=== PATIENT | female | born 1990 | race Hispanic/Latino ===

== ENCOUNTER 2024-06-13 18:24 | Emergency (ER) | payer OTHER, SELFPAY ==
--- NOTE | 2024-06-13 19:17 | EKG_ITS ---
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
[2024-06-13 19:18] VITALS: BP 153/87; PULSE 86; RESP 18; TEMP 37.6; O2SAT 97; BMI 25.9
[2024-06-13 20:16] LABS: Influenza A - CEPHEID Flu A NEGATIVE (NEGATIVE); Influenza B - CEPHEID Flu B NEGATIVE (NEGATIVE); Respiratory Syncytial Virus Negative (Negative)
[2024-06-13 20:18] LABS: COVID-19 CEPHEID 4-PLEX PCR Negative (Negative)
[2024-06-13 22:11] VITALS: BP 126/78; PULSE 84; O2SAT 99
[2024-06-13 22:30] VITALS: BP 128/79; PULSE 75; O2SAT 97
[2024-06-13 23:00] VITALS: BP 125/70; PULSE 77; O2SAT 94
[2024-06-13 23:30] VITALS: BP 139/76; PULSE 81; O2SAT 94
[2024-06-14] VITALS: BP 124/75; PULSE 80; O2SAT 95
[2024-06-14 00:30] VITALS: BP 133/74; PULSE 84; O2SAT 95
--- NOTE | 2024-06-14 00:43 | ED.URI ---
HPI - URI/Sore Throat General Chief Complaint: Upper Respiratory Symptoms Stated Complaint: cough, fever x2 wks Time Seen by Provider: 06/14/24 00:43 Source: patient Mode of arrival: Ambulatory History of Present Illness HPI Narrative: 35-year-old female without any significant past medical history presents to the emergency department from home for evaluation flu-like symptoms states been having cough fever and chest tightness for the past 2 weeks. Patient states that she has been taking Tamiflu. She states that she is also having some chest pain states that she does feel like the pain is worse whenever she takes a deep breath but no recent travel no known sick contacts not on any control. She states that she initially went to the emergency department somewhere else when the symptoms 1st started and told her she had a viral infection and that she would get better however she states that given the prolonged symptoms and no improvement decided come into the ED for further evaluation treatment. Related Data Previous Rx's Medication Instructions Recorded methylprednisolone 4 mg tablets in See Rx Instructions PO .COMPLEX 06/14/24 a dose pack (Medrol (Jose G)) #21 ea Allergies Allergy/AdvReac Type Severity Reaction Status Date / Time No Known Drug Allergies Allergy Verified 06/13/24 19:23 Review of Systems Review of Systems Narrative: General: Positive fever, chills HEENT: Denies headache, eye drainage, eye irritation, head trauma, sore throat, voice change Cardiovascular: Positive chest pain, denies palpitation tachycardia Respiratory: Positive shortness of breath, cough, denies wheeze or rhonchi GI/: Denies any abdominal pain, nausea, vomiting, diarrhea, bright red blood per rectum, melanotic stools, urinary frequency, urinary retention, dysuria, hematuria MSK: Positive myalgias Skin: Denies any rashes, lesions, discoloration Neuro: Denies any headache, lightheadedness, dizziness, fainting, weakness Psych: Denies SI/HI Patient History Social History Smoking Status: Unknown if ever smoked Smoking Status: Unknown if ever smoked Exam Narrative Exam Narrative: General: Cooperative, comfortable, well-developed, not in acute distress HEENT: Normocephalic, atraumatic, PERRLA, normal sclera, eyelids normal, Neck: Active full range of motion, atraumatic Chest: Normal to inspection, negative crepitus, no overlying erythema ecchymosis Respiratory: Coughing on exam, Normal respiratory effort, not in acute respiratory distress, clear to auscultation bilaterally, wheeze, tachypnea, rhonchi, rales Cardiology: Regular rate rhythm negative gallop, murmur, rubs GI/: Normal to inspection, soft, nonrigid, no tenderness to palpation, exam deferred MSK: Full range of active range of motion of all 4 extremities, atraumatic Skin: No rashes lesions noted Neuro: Alert awake oriented x3, moves all 4 extremities spontaneously, cranial nerves intact, able to answer all questions appropriately follows commands appropriately Psych: Cooperative, negative suicidal or homicidal ideations Initial Vital Signs Initial Vital Signs: Vital Signs Temperature 99.6 F 06/13/24 19:18 Pulse Rate 86 06/13/24 19:18 Respiratory Rate 18 06/13/24 19:18 Blood Pressure 153/87 H 06/13/24 19:18 Pulse Oximetry 97 06/13/24 19:18 Oxygen Delivery Method Room Air 06/13/24 19:18 Course Orders Ordered: ED Orders 06/13/24 19:10 Covid-19 + FLU A/B + RSV - PCR Stat 06/13/24 19:17 EKG-12 Lead Stat 06/14/24 00:53 CXR [XR chest 1V] Stat 06/14/24 01:05 CBC Auto Diff [Complete Blood Count AUTO DIFF] Stat CMP [Comprehensive Metabolic Panel] Stat Lipase Stat MAG [Magnesium] Stat Troponin & CK Cardiac Panel Stat Discontinued Medications Albuterol (Albuterol Hfa Prepack) 1 box MISC DIRECTED ONE Stop: 06/14/24 00:54 Last Admin: 06/14/24 01:19 Dose: 1 box Documented By: Sodium Chloride (Normal Saline 0.9%) 1,000 mls @ 1,000 mls/hr IV BOLUS ONE Stop: 06/14/24 01:52 Last Admin: 06/14/24 01:19 Dose: 1,000 mls/hr Documented By: Prednisone (Prednisone 20 Mg Tablet) 20 mg PO NOW ONE Stop: 06/14/24 00:54 Last Admin: 06/14/24 01:19 Dose: 20 mg Documented By: Vital Signs Vital signs: Vital Signs - 8 hr 06/13/24 19:18 06/13/24 22:11 06/13/24 22:11 Temperature 99.6 F Pulse Rate 86 84 Respiratory Rate 18 Blood Pressure 153/87 H 126/78 Pulse Oximetry 97 99 Oxygen Delivery Method Room Air 06/13/24 22:30 06/13/24 22:30 06/13/24 23:00 Temperature Pulse Rate 75 77 Respiratory Rate Blood Pressure 128/79 Pulse Oximetry 97 94 Oxygen Delivery Method Room Air 06/13/24 23:00 06/13/24 23:30 06/13/24 23:30 Temperature Pulse Rate 81 Respiratory Rate Blood Pressure 125/70 139/76 Pulse Oximetry 94 Oxygen Delivery Method 06/14/24 00:00 06/14/24 00:00 06/14/24 00:30 Temperature Pulse Rate 80 84 Respiratory Rate Blood Pressure 124/75 Pulse Oximetry 95 95 Oxygen Delivery Method 06/14/24 00:30 06/14/24 01:00 06/14/24 01:00 Temperature Pulse Rate 91 H Respiratory Rate Blood Pressure 133/74 131/80 Pulse Oximetry 93 Oxygen Delivery Method Room Air 06/14/24 01:30 06/14/24 01:30 Temperature Pulse Rate 81 Respiratory Rate 25 H Blood Pressure 135/79 Pulse Oximetry 98 Oxygen Delivery Method Room Air MDM - URI/Sore Throat Differential Diagnosis Differential diagnosis: Likely upper respiratory infection, viral infection and bronchitis (ACS, pneumonia, electrolyte abnormality) Lab Data 06/14/24 01:05 06/14/24 01:05 Labs: Lab Results 06/13/24 06/14/24 Range/Units 19:10 01:05 WBC 15.0 H (4.5-11.0) X10^3/uL RBC 4.22 (4.0-5.2) X10^6/uL Hgb 12.4 (12.0-16.0) g/dL Hct 36.4 (36-46) % MCV 86.1 (80-100) fL MCH 29.4 (26-34) PG MCHC 34.2 (30-36) % RDW 12.9 (11.6-14.8) % Plt Count 405 H (150-400) X10^3/uL Neut % (Auto) 81.4 H (50-75) % Lymph % (Auto) 12.6 L (25-40) % Christian % (Auto) 3.9 (3-14) % Eos % (Auto) 1.2 L (2-4) % Baso % (Auto) 0.9 (0-2) % Neut # (Auto) 07180 H (2461-9033) /uL Lymph # (Auto) 1900 (4193-4968) /uL Christian # (Auto) 600 (0-900) /uL Eos # (Auto) 200 (0-450) /uL Baso # (Auto) 100 (0-100) /uL Sodium 140 (137-145) mmol/L Potassium 3.7 (3.4-5.1) mmol/L Chloride 106 (98-107) mmol/L Carbon Dioxide 23 (22-32) mmol/L BUN 10 (7-17) mg/dL Creatinine 0.59 (0.52-1.04) mg/dL Estimated GFR > 60 (>60) mL/min BUN/Creatinine Ratio 16.9 (6-22) Glucose 115 H (70-100) mg/dL Calcium 9.1 (8.4-10.2) mg/dL Magnesium 2.0 (1.6-2.3) mg/dL Total Bilirubin 0.6 (0.2-1.3) mg/dL AST 34 (14-36) IU/L ALT 45 H (<35) IU/L Alkaline Phosphatase 167 H (38-126) U/L Total Creatine Kinase 53 (30-135) U/L Troponin I < 0.012 (0.01-0.034) ng/mL Total Protein 7.8 (6.3-8.2) g/dL Albumin 4.3 (3.5-5.0) g/dL Globulin 3.5 (1.7-4.1) g/dL Albumin/Globulin Ratio 1.2 (1.0-2.8) Lipase 75 (23-300) U/L SARS-CoV-2 (PCR) Negative (Negative) Influenza A (RT-PCR) Flu a negative (NEGATIVE) Influenza B (RT-PCR) Flu b negative (NEGATIVE) RSV (PCR) Negative (Negative) ECG Data Interpretation: EKG interpreted by ED physician sinus 65 beats per minute QTC [address] changes no STEMI MDM Narrative Medical decision making narrative: 34-year-old female presenting for flu-like symptoms which include chest pain shortness of breath fever chills ongoing persistent for the past 2 weeks. She does state that her chest pain is worse with deep inspiration, however she is PERC negative. EKG nonischemic in nature patient had lab work imaging performed here, troponin negative, chest x-ray without any signs of pneumonia. Patient had improved symptoms after administration of albuterol steroids here patient's symptoms more likely secondary to viral bronchitis, patient was sent home with symptomatic relief instructed follow up with PCP in outpatient setting strict return precautions given verbalized understanding of this and agrees to being discharged home with outpatient follow up. Patient with heart score 0 Discharge Plan Departure Patient Disposition: Home Clinical Impression: Bronchitis Instructions: DI for Bronchiolitis Activity Restrictions/Additional Instructions: Please follow up with her primary care doctor Please read the discharge instructions sheet carefully and bring all papers to all doctor follow-up visits, as it may contain information that your doctor may want to see. Disease processes change and evolve, if your symptoms worsen or if you develop any new symptoms that are concerning to you please return for evaluation. Your evaluation today does not show any evidence of any life-threatening/serious illnesses requiring admission to the hospital or surgery. Please follow-up with your doctor for re-evaluation in approximately 1 day. Seek immediate medical attention for any worrisome symptoms. *If you do not have a primary care provider please contact the [facility] Resource line at [phone]. They will ask some questions about your medical history and help get you set up with a doctor in the community. Prescriptions: New methylprednisolone [Medrol (Jose G)] 4 mg tablets,dose pack See Rx Instructions .ROUTE .COMPLEX Qty: 21 0RF Rx Instructions: for 6 days Stand Alone Forms: Patient Portal/API/Survey
--- NOTE | 2024-06-14 00:53 | DI.RAD.S_ITS ---
PROCEDURE: XR CHEST 1V INDICATIONS: chest pain TECHNIQUE: One view of the chest was acquired. COMPARISON: None. FINDINGS: Surgical changes and devices: None. Lungs and pleura: Lungs are clear. No pleural effusions or pneumothorax. Mediastinum: Mediastinal contours appear normal. Heart size is normal. Bones and chest wall: No suspicious bony lesions. Overlying soft tissues appear unremarkable. IMPRESSION: No acute cardiopulmonary abnormality is seen. Dictated by: Anders Womack M.D. on 06/14/2024 at 1:15 Approved by: Anders Womack M.D. on 06/14/2024 at 1:16
[2024-06-14 01:00] VITALS: BP 131/80; PULSE 91; O2SAT 93
[2024-06-14 01:14] LABS: Add Manual Diff / Slide Review NO; Basophils Absolute Auto 100 /uL (0-100); Basophils Percent Auto 0.9 % (0-2); Eosinophils Absolute Auto 200 /uL (0-450); Eosinophils Percent Auto 1.2 % (2-4); Hematocrit 36.4 % (36-46); Hemoglobin 12.4 g/dL (12.0-16.0); Lymphocytes Absolute Auto 1900 /uL (1100-4500); Lymphocytes Percent Auto 12.6 % (25-40); Mean Corpuscular HGB Conc 34.2 % (30-36); Mean Corpuscular Hemoglobin 29.4 PG (26-34); Mean Corpuscular Volume 86.1 fL (80-100); Monocytes Absolute Auto 600 /uL (0-900); Monocytes Percent Auto 3.9 % (3-14); Neutrophils Absolute Auto 12200 /uL (1500-7000); Neutrophils Percent Auto 81.4 % (50-75); Platelet Count 405 X10^3/uL (150-400); Red Blood Cell Count 4.22 X10^6/uL (4.0-5.2); Red Cell Distribution Width 12.9 % (11.6-14.8)
[2024-06-14] MEDS: predniSONE 20 MG TABLET PO (01:19)
[2024-06-14] MEDS: SODIUM CHLORIDE 0.9% 1,000 ML 1000 ML IV (01:19)
[2024-06-14] MEDS: ALBUTEROL HFA PREPACK 1 BOX MISC (01:19)
[2024-06-14 01:24] LABS: Alanine Aminotransferase 45 IU/L (<35); Albumin 4.3 g/dL (3.5-5.0); Albumin Globulin Ratio 1.2 (1.0-2.8); Alkaline Phosphatase 167 U/L (38-126); Aspartate Aminotransferase 34 IU/L (14-36); BUN Creatinine Ratio 16.9 (6-22); Bilirubin Total 0.6 mg/dL (0.2-1.3); Blood Urea Nitrogen 10 mg/dL (7-17); Calcium 9.1 mg/dL (8.4-10.2); Carbon Dioxide 23 mmol/L (22-32); Chloride 106 mmol/L (98-107); Creatine Kinase 53 U/L (30-135); Estimated Glomerular Filt Rate > 60 mL/min (>60); Globulin 3.5 g/dL (1.7-4.1); Glucose 115 mg/dL (70-100); HEMOLYSIS < 15 (0-50); Lipase 75 U/L (23-300); Potassium 3.7 mmol/L (3.4-5.1); Sodium 140 mmol/L (137-145); Total Protein 7.8 g/dL (6.3-8.2)
[2024-06-14 01:30] VITALS: BP 135/79; PULSE 81; RESP 25; O2SAT 98
[2024-06-14 01:37] LABS: Troponin I < 0.012 ng/mL (0.01-0.034)
[2024-06-14 02:03] VITALS: PULSE 91; RESP 22; O2SAT 94
[2024-06-14 02:14] VITALS: BP 115/68; PULSE 90
== END 2024-06-14 02:18 | disposition home or self-care (01) ==
PROVIDERS: Emergency Provider Student in an Organized Health Care Education/Training Program
DX: J40 Bronchitis, not specified as acute or chronic (principal); R50.9 Fever, unspecified; R05.9 Cough, unspecified
CPT/HCPCS: 0241U; 36415; 71045; 80053; 82550; 83690; 83735; 84484; 85025; 93005; 96360; 99284